=== PATIENT | female | born 1980 | race Asian ===

== ENCOUNTER 2017-07-24 18:14 | Emergency (ER) | payer OTHER ==
[2017-07-24 18:23] VITALS: O2SAT 97
[2017-07-24] MEDS ORDERED: IBUPROFEN 600 MG TAB PO ONE (18:32)
[2017-07-24] MEDS ORDERED: NS 1,000 ML IV ONE ×2 (18:32→19:18)
--- NOTE | 2017-07-24 18:34 | EDPHY ---
H & P Time Seen by Provider: 07/24/17 18:31 HPI/ROS: Chief complaint. Fever HPI. Patient is a 36-year-old female visiting from [place] with her . She has had 1 day history of fever. She has had some congestion and sore throat. No cough or trouble breathing. No chest discomfort. No abdominal pain nausea vomiting or diarrhea. No urinary symptoms. Body aches. She has been using Tylenol for fever but last Tylenol was this morning. She has recently immigrated from [place] and is current on all her immunizations. She has had exposure to Infectious Disease visiting people with the flu. ROS Constitutional. Fever Eyes. no problems with vision ENT. Congestion, sore throat Cardiovascular. no chest pain Respiratory. no shortness of breath, no cough Abdominal. no abdominal pain, no nausea/vomiting, no diarrhea . no problems urinating MS. no calf pain/swelling, no neck/back pain, no joint pain; myalgias Skin. no rash Lymph. no swollen glands Neuro. no headache, no dizziness, no difficulty walking or with speech Past Medical/Surgical History: Healthy Social History: , nonsmoker, no alcohol Smoking Status: Never smoked Physical Exam: General Appearance: Alert well-developed female mild distress vital signs show temp 38.7 degrees with heart rate 115 Eyes: Pupils equal and round no pallor or injection. ENT, tympanic membranes are normal. Pharynx injected with exudate. Mucous membranes are slightly dry. No evidence for peritonsillar abscess. No stridor. Patient swallowing secretions and speaking normally. Respiratory: There are no retractions, lungs are clear to auscultation. Cardiovascular: Regular rate and rhythm. Gastrointestinal: Abdomen is soft and nontender, no masses, bowel sounds normal. Neurological: Awake and alert, sensory and motor exams grossly normal. Skin: Warm and dry, no rashes. Musculoskeletal: Neck is supple nontender. Extremities symmetrical, full range of motion. Psychiatric: Patient is oriented X 3, there is no agitation. Constitutional: Initial Vital Signs Temperature (C) 38.7 C H 07/24/17 18:19 Heart Rate 115 H 07/24/17 18:19 Respiratory Rate 18 07/24/17 18:19 Blood Pressure 115/77 07/24/17 18:19 O2 Sat (%) 97 07/24/17 18:19 O2 Delivery Mode Room Air Allergies/Adverse Reactions: No Known Allergies Allergy (Unverified 07/24/17 18:23) Home Medications: Medication Instructions Recorded Multivitamin (*) 07/24/17 Penicillin V Potassium [Penicillin 500 mg PO BID #14 tab 07/24/17 VK] Medical Decision Making Procedures: IV normal saline. Ibuprofen for fever. Patient is given 2 L of saline IV Rocephin. IV Decadron ED Course/Re-evaluation: Re-evaluation at 7:15 p.m. Patient is feeling better. She, her , and I discussed laboratory evaluation, treatment plan including criteria for return importance of follow-up further evaluation. They expressed understanding and agreement. On serial evaluations the patient looks well. She does have a markedly elevated white blood cell count however again she appears not toxic. She feels much better after IV hydration. She is speaking normally. No stridor. Swallowing secretions. Comfortable lying back. Differential Diagnosis: I considered influenza. I considered viral pharyngitis. The patient has pharyngeal swelling with exudate and I considered strep pharyngitis as well. No evidence for peritonsillar abscess or epiglottitis. - Data Points Laboratory Results: Laboratory Results 07/24/17 18:55 07/24/17 18:55 Medications Given: Discontinued Medications Dexamethasone (Decadron Injection) 10 mg IVP EDNOW ONE Stop: 07/24/17 19:18 Last Admin: 07/24/17 20:21 Dose: 10 mg Sodium Chloride (Ns) 1,000 mls @ 0 mls/hr IV EDNOW ONE; Wide Open PRN Reason: Protocol Stop: 07/24/17 18:33 Last Admin: 07/24/17 18:52 Dose: 1,000 mls Ceftriaxone Sodium/Dextrose (Rocephin 1 Gm (Premix)) 50 mls @ 100 mls/hr IV EDNOW ONE PRN Reason: Protocol Stop: 07/24/17 19:46 Last Admin: 07/24/17 20:20 Dose: 50 mls Sodium Chloride (Ns) 1,000 mls @ 0 mls/hr IV EDNOW ONE; Wide Open PRN Reason: Protocol Stop: 07/24/17 19:19 Last Admin: 07/24/17 20:18 Dose: 1,000 mls Ibuprofen (Motrin) 600 mg PO EDNOW ONE Stop: 07/24/17 18:33 Last Admin: 07/24/17 18:51 Dose: 600 mg Departure - Departure Disposition: Home, Routine, Self-Care Clinical Impression: Strep pharyngitis Condition: Good Instructions: Strep Throat (ED) Additional Instructions: Tylenol 650 mg every 4-6 hours, ibuprofen 600 mg every 6 hr as needed for fever and achiness. Drink plenty of fluids and stay hydrated Penicillin as antibiotic. Return for worsening symptoms including trouble breathing and swallowing. Recheck in 2 days if not improved Referrals: NONE *PRIMARY CARE P,. [Primary Care Provider] - As per Instructions Prescriptions: Penicillin V Potassium [Penicillin VK] 500 mg PO BID #14 tab
[2017-07-24 19:01] LABS: PLATELET COUNT 261 10^3/uL (150-400)
[2017-07-24] MEDS ORDERED: DEXAMETHASONE 10 MG/ML VIAL IVP ONE (19:17)
[2017-07-24 21:10] VITALS: BP 106/69; PULSE 87; RESP 16; TEMP 97.9
== END 2017-07-24 21:04 | disposition home or self-care (01) ==
LOC: CED 18:14
DX: J02.0 Streptococcal pharyngitis (principal); E86.9 Volume depletion, unspecified
CPT/HCPCS: 80048-PO; 81003-PO; 81015-PO; 84703-PO; 85025-PO; 87400-PO; 87880-PO; 96365; J0696; J1100